=== PATIENT | male | born 1970 | race Hispanic/Latino ===

== ENCOUNTER 2020-03-04 05:26 | Emergency (ER) | payer BC ==
[2020-03-04] MEDS ORDERED: TAMSULOSIN HCL 0.4 MG CAP.ER.24H ONE (06:22)
[2020-03-04] MEDS ORDERED: ONDANSETRON ODT 4 MG TAB ONE (06:22)
== END 2020-03-04 06:40 | disposition home or self-care (01) ==
LOC: EDH 05:26
DX: N23 Unspecified renal colic (principal); R11.2 Nausea with vomiting, unspecified; I10 Essential (primary) hypertension; E11.9 Type 2 diabetes mellitus without complications; E78.00 Pure hypercholesterolemia, unspecified